=== PATIENT | female | born 1970 | race Two or more races ===

== ENCOUNTER 2018-08-21 18:51 | Emergency (ER) | payer OTHER ==
[~2018-08-21] VITALS: Ht 165.1 cm; Wt 68.0 kg
[2018-08-21] MEDS ORDERED: ONDANSETRON HCL 4 MG/2 ML VIAL IV ONE (19:30)
[2018-08-21] MEDS ORDERED: SODIUM CHLORIDE 0.9% 1,000 ML IV ONE (19:30)
[2018-08-21] MEDS ORDERED: MORPHINE SULFATE 4 MG/ML SYR/VIAL IV ONE (19:30)
[2018-08-21 20:21] LABS: Basophils # (auto) 0 uL; Basophils % (auto) 0.4 % (0.0-2.0); Eosinophils # (auto) 0.1 uL; Eosinophils % (auto) 1.6 % (0.0-7.0); Hemoglobin 14.8 g/dL (12.2-16.2); Lymphocytes # (auto) 3.3 uL; Mean Corpuscular Hemoglobin 32.9 pg (28.0-32.0); Mean Corpuscular Hgb Conc. 34.5 g/dL (32.0-36.0); Mean Corpuscular Volume 95.6 fL (80.0-100.0); Monocytes # (auto) 0.5 uL; Monocytes % (auto) 5.1 % (0.0-12.0); Neutrophils # (auto) 5.2 uL; Neutrophils % (auto) 56.9 % (37.0-80.0); Platelet Count (auto) 407 10^3/uL (140-450); Red Cell Distribution Width 13.1 % (11.8-14.3); White Blood Cell 9.2 10^3/uL (4.4-10.8)
[2018-08-21 20:34] LABS: Albumin 4.3 g/dL (3.4-5.0); Calcium 8.7 mg/dL (8.5-10.1); Potassium 3.7 mmol/L (3.5-5.1)
[2018-08-21 20:37] LABS: Bilirubin, Total 0.8 mg/dL (0.2-1.0); Total Protein 7.7 g/dL (6.4-8.2)
[2018-08-21] MEDS ORDERED: BACITRACIN TOP OINT 1 UD PKG TOP ONE (22:15)
[2018-08-21 22:20] VITALS: BP 123/86
== END 2018-08-22 00:04 | disposition left against medical advice (07) ==
LOC: ER 18:51
DX: T21.22XA Burn of second degree of abdominal wall, initial encounter (principal); T24.211A Burn of second degree of right thigh, initial encounter; Z53.29 Procedure and treatment not carried out because of patient's decision for other reasons; X12.XXXA Contact with other hot fluids, initial encounter; Y93.89 Activity, other specified; Y99.8 Other external cause status; Y92.89 Other specified places as the place of occurrence of the external cause
CPT/HCPCS: 36415; 80053; 85025; 96374; 96375; 99284; J2270; J2405; J7030

== ENCOUNTER 2021-05-29 09:39 | Emergency (ER) | payer OTHER ==
[~2021-05-29] VITALS: Ht 172.7 cm; Wt 61.2 kg
[2021-05-29 09:39] VITALS: BP 101/78
== END 2021-05-29 10:28 | disposition left against medical advice (07) ==
LOC: EDBD 09:39 → ER 09:39
DX: M79.605 Pain in left leg (principal); M54.42 Lumbago with sciatica, left side; Z53.21 Procedure and treatment not carried out due to patient leaving prior to being seen by health care provider

== ENCOUNTER 2021-06-19 07:15 | Emergency (ER) | payer OTHER ==
[~2021-06-19] VITALS: Ht 165.1 cm; Wt 63.5 kg
[2021-06-19 07:33] VITALS: BP 95/57
[2021-06-19] MEDS ORDERED: KETOROLAC TROMETH 60MG/2ML VIAL IM ONE (08:00)
[2021-06-19] MEDS ORDERED: CYCLOBENZAPRINE HCL 10 MG TAB PO ONE (09:15)
== END 2021-06-19 09:27 | disposition home or self-care (01) ==
LOC: ER 07:15
DX: G62.9 Polyneuropathy, unspecified (principal); G89.29 Other chronic pain; M54.9 Dorsalgia, unspecified; M62.838 Other muscle spasm; Z91.013 Allergy to seafood
CPT/HCPCS: 93971; 96372; 99284; J1885

== ENCOUNTER 2022-08-18 11:31 | Emergency (ER) | payer OTHER | END 2022-08-18 11:38 | disposition left against medical advice (07) | LOC: ER 11:31 | DX: T14.8XXA Other injury of unspecified body region, initial encounter (principal); Z53.21 Procedure and treatment not carried out due to patient leaving prior to being seen by health care provider; X58.XXXA Exposure to other specified factors, initial encounter; Y93.89 Activity, other specified; Y92.89 Other specified places as the place of occurrence of the external cause; Y99.8 Other external cause status ==

== ENCOUNTER 2023-09-12 00:27 | Emergency (ER) | payer OTHER ==
[~2023-09-12] VITALS: Ht 165.1 cm; Wt 74.8 kg
[2023-09-12 02:07] LABS: Rapid Strep A Screen-Throat Negative
[2023-09-12 02:16] LABS: COVID19 ANTIGEN SOFIA FIA NEGATIVE (NEGATIVE); Rapid Influenza A Negative (Negative); Rapid Influenza B Negative (Negative)
[2023-09-12] MEDS: LIDOCAINE VISCOUS 2% 15ML UD MT ONE (02:45)
[2023-09-12] MEDS ORDERED: cefTRIAXone SOD 1,000 MG VL IM ONE (02:45)
[2023-09-12] MEDS ORDERED: DexAMETHasone SOD PHOS 10MG/1ML VIAL INJ IM ONE (02:45)
[2023-09-12] MEDS ORDERED: ALBUAER3 IN (02:48)
[2023-09-12] MEDS ORDERED: PRED20TA2 PO (02:48)
[2023-09-12] MEDS ORDERED: BENZLOZ2 MT (02:48)
[2023-09-12] MEDS ORDERED: CLIN150C18 PO (02:48)
[2023-09-12] MEDS ORDERED: BENZ200C64 PO (02:48)
[2023-09-12 03:40] VITALS: BP 119/68; PULSE 93; RESP 20; TEMP 98.9; O2SAT 98
== END 2023-09-12 03:42 | disposition home or self-care (01) ==
LOC: ER 00:27
DX: J03.90 Acute tonsillitis, unspecified (principal); Z91.013 Allergy to seafood; Z20.822 Contact with and (suspected) exposure to COVID-19
CPT/HCPCS: 36415; 87070; 87426; 87804; 87880; 96372; 99284; J0696; J1100

== ENCOUNTER 2023-12-23 09:42 | Emergency (ER) | payer MEDICAID, OTHER ==
[~2023-12-23] VITALS: Ht 165.1 cm; Wt 79.5 kg
[~2023-12-23 09:42] MED LIST: ALBUAER3 IN; BENZ200C64 PO; BENZLOZ2 MT; CLIN150C18 PO; PRED20TA2 PO
[2023-12-23] MEDS: SODIUM CHLORIDE 0.9% 1,000 ML IV ONE (09:55)
[2023-12-23] MEDS: methylPREDNISolone SOD SUCC 125 MG/2 ML VL IV ONE (10:02)
[2023-12-23] MEDS ORDERED: DIPH25CA66 PO (10:46)
[2023-12-23] MEDS ORDERED: METH4PAK PO (10:46)
[2023-12-23 10:48] VITALS: BP 129/76; PULSE 102; RESP 16; TEMP 98.7; O2SAT 100
== END 2023-12-23 10:53 | disposition home or self-care (01) ==
LOC: ER 09:42 → EDBD 09:42 → ER 10:51
DX: T78.40XA Allergy, unspecified, initial encounter (principal); R06.02 Shortness of breath; L50.9 Urticaria, unspecified; Z91.013 Allergy to seafood; X58.XXXA Exposure to other specified factors, initial encounter
CPT/HCPCS: 96361; 96374; 99283; J2930; J7030